=== PATIENT | female | born 1955 | race African-American/Black ===

== ENCOUNTER 2016-08-07 15:10 | Emergency (ER) | payer MEDICAID ==
[~2016-08-07] VITALS: Ht 165.1 cm; Wt 68.0 kg
[~2016-08-07 15:10] MED LIST: ASPI-1035 PO; CARI350T; CILO100T21 PO; HYDR25TA PO; HYDR500C PO; LOP25 PO
[2016-08-07] MEDS ORDERED: KETOROLAC 60MG/2ML VIAL IM ONE (19:00)
[2016-08-07 19:30] VITALS: BP 118/64
== END 2016-08-07 20:00 | disposition home or self-care (01) ==
LOC: ER 15:26
DX: M54.2 Cervicalgia (principal); R51 Headache; M62.838 Other muscle spasm; I11.9 Hypertensive heart disease without heart failure; R20.2 Paresthesia of skin; M47.897 Other spondylosis, lumbosacral region; D57.1 Sickle-cell disease without crisis; Z88.6 Allergy status to analgesic agent; Z88.8 Allergy status to other drugs, medicaments and biological substances; Z79.82 Long term (current) use of aspirin; I25.10 Atherosclerotic heart disease of native coronary artery without angina pectoris; Z95.1 Presence of aortocoronary bypass graft
CPT/HCPCS: 93005; 96372; 99283; J1885; Z7610

== ENCOUNTER 2018-01-02 13:58 | Emergency (ER) | payer MEDICAID ==
[~2018-01-02] VITALS: Ht 167.6 cm; Wt 68.0 kg
[~2018-01-02 13:58] MED LIST changes: -ASPI-1035 PO; +ASPI-1158 PO; -CARI350T; +S350
[2018-01-02] MEDS ORDERED: ONDANSETRON HCL 4MG/2ML VIAL IV STA (16:35)
[2018-01-02] MEDS ORDERED: KETOROLAC 30MG/ML VIAL IV STA (16:35)
[2018-01-02] MEDS ORDERED: MORPHINE SULFATE 4 MG/ML CPJ (NOT FOR IM USE) IV STA (16:35)
[2018-01-02] MEDS ORDERED: SODIUM CHLORIDE 0.9% 1,000 ML IV ONE (16:35)
[2018-01-02 18:26] LABS: BASOPHILS % 0.5 % (0.0-2.0); EOSINOPHILS % 1.5 % (0.0-5.0); HEMATOCRIT. 35.8 % (36.0-48.0); HEMOGLOBIN. 11.6 g/dL (12.0-16.0); LYMPHOCYTES % 47.1 % (20.0-50.0); MEAN CORPUSCULAR HEMOGLOBIN 20.7 pg (28.0-32.0); MEAN CORPUSCULAR VOLUME 64.1 fL (81.0-99.0); MONOCYTES % 9.1 % (2.0-8.0); NEUTROPHILS % 41.8 % (40.0-76.0); RED BLOOD CELL COUNT 5.59 mill/uL (4.2-5.4); RED CELL DISTRIBUTION WIDTH 17.9 % (11.6-14.6)
[2018-01-02 18:27] LABS: CHLORIDE 102 mEq/L (98-107)
[2018-01-02 18:28] LABS: CLARITY URINE CLEAR (CLEAR); COLOR URINE YELLOW (YELLOW); KETONES URINE NEGATIVE (NEGATIVE); LEUKOCYTE ESTERASE URINE NEGATIVE (NEGATIVE); NITRITE URINE NEGATIVE (NEGATIVE); OCCULT BLOOD URINE NEGATIVE (NEGATIVE); PROTEIN URINE NEGATIVE (NEGATIVE); SPECIFIC GRAVITY URINE 1.007 (1.005-1.030); UROBILINOGEN URINE 0.2 E.U./dL (0.2-1.0)
[2018-01-02 18:30] LABS: PARTIAL THROMBOPLASTIN TIME 26.4 sec (23.4-31.0); PROTHROMBIN TIME 10.2 sec (9.1-11.1)
[2018-01-02 18:31] LABS: ETHANOL BLOOD < 10 mg/dL
[2018-01-02 18:35] LABS: CREATINE KINASE 67 IU/L (26-192)
[2018-01-02] MEDS ORDERED: POTASSIUM CHLORIDE 20MEQ TABLET SR PO ONE (18:45)
[2018-01-02 18:51] LABS: MEAN PLATELET VOLUME 9.5 fl (7.4-10.4); PLATELET 114 x1000/uL (130-400)
[2018-01-02 18:52] LABS: PLATELET ESTIMATE DECREASED
[2018-01-02 18:54] LABS: *AMPHETAMINES SCREEN URINE NEGATIVE (NEGATIVE); *BARBITURATES SCREEN URINE NEGATIVE (NEGATIVE); *BENZODIAZEPINES SCREEN URINE NEGATIVE (NEGATIVE); *COCAINE SCREEN URINE NEGATIVE (NEGATIVE); CANNABINOID URINE SCREEN NEGATIVE (NEGATIVE); PHENCYCLIDINE URINE SCREEN NEGATIVE (NEGATIVE)
[2018-01-02 18:55] LABS: METHADONE URINE SCREEN NEGATIVE (NEGATIVE); OPIATES URINE SCREEN NEGATIVE (NEGATIVE)
[2018-01-02 19:05] VITALS: BP 144/69
== END 2018-01-02 19:45 | disposition home or self-care (01) ==
LOC: ER 13:58
DX: E86.0 Dehydration (principal); I11.9 Hypertensive heart disease without heart failure; Z88.8 Allergy status to other drugs, medicaments and biological substances; Z79.899 Other long term (current) drug therapy
CPT/HCPCS: 36415; 71045; 80053; 80305; 81003; 82550; 83690; 83880; 84443; 84484; 85025; 85610; 85730; 93005; 96361; 96374; 96375; 99285; G0482; J1885; J2270; J2405; J7030

== ENCOUNTER 2021-12-24 21:29 | Emergency (ER) | payer MEDICARE, OTHER ==
[~2021-12-24] VITALS: Ht 165.1 cm; Wt 63.6 kg
[~2021-12-24 21:29] MED LIST changes: -ASPI-1158 PO; +ASPI-1406 PO; +CARI350T28; -S350
[2021-12-24 23:56] LABS: BASOPHILS % 1.3 % (0.0-2.0); EOSINOPHILS % 1.2 % (0.0-5.0); HEMATOCRIT. 31.6 % (36.0-48.0); HEMOGLOBIN. 10.3 g/dL (12.0-16.0); LYMPHOCYTES % 41.7 % (20.0-50.0); MEAN CORPUSCULAR VOLUME 64.6 fL (81.0-99.0); MEAN PLATELET VOLUME 9.1 fl (7.4-10.4); NEUTROPHILS % 47.8 % (40.0-76.0); PLATELET 119 x1000/uL (130-400); RED BLOOD CELL COUNT 4.88 mill/uL (4.2-5.4); RED CELL DISTRIBUTION WIDTH 16.9 % (11.6-14.6)
[2021-12-25 00:11] LABS: CHLORIDE 105 mEq/L (98-107)
[2021-12-25 00:19] LABS: PLATELET ESTIMATE SLIGHTLY DECREASED
[2021-12-25] MEDS ORDERED: POTASSIUM CHLORIDE 20MEQ TABLET SR PO ONE (01:15)
[2021-12-25 02:20] VITALS: BP 113/65
== END 2021-12-25 02:20 | disposition home or self-care (01) ==
LOC: ER 21:29
DX: R00.2 Palpitations (principal)
CPT/HCPCS: 36415; 71045; 80053; 83880; 84484; 85025; 85379; 93005; 99285